=== PATIENT | male | born 2005 ===

== ENCOUNTER 2024-11-16 17:19 | Emergency (ER) | payer OTHER | END 2024-11-16 18:53 | disposition home or self-care (01) | LOC: CSHERS 17:19 | DX: S93.402A Sprain of unspecified ligament of left ankle, initial encounter (principal); Z55.6 Problems related to health literacy; Z75.3 Unavailability and inaccessibility of health-care facilities; X50.1XXA Overexertion from prolonged static or awkward postures, initial encounter; Y92.009 Unspecified place in unspecified non-institutional (private) residence as the place of occurrence of the external cause | CPT/HCPCS: 99283 ==